=== PATIENT | female | born 1960 | race Caucasian/White ===

== ENCOUNTER 2017-12-22 11:28 | Emergency (ER) | payer BC, OTHER ==
[2017-12-22 12:08] LABS: #Eosinphils 0.1 thou/uL (0.0-0.7); #Lymphocytes 2.1 thou/uL (1.20-3.40); #Monocytes 0.4 thou/uL (0.11-0.59); #Neutrophils 4.6 thou/uL (1.40-6.50); %Basophils 0.4 % (0.0-1.0); %Eosinophils 0.7 % (0.0-10.0); %Lymphocytes 29.1 % (21.0-51.0); %Neutrophils 64.9 % (42.0-75.0); Hemoglobin 13.4 g/dL (12.0-16.0); Mean Corpuscular HGB CONC 32.2 g/dL (32.0-36.0); Mean Corpuscular Volume 86.9 fl (81.0-99.0); Mean Platelet Volume 7.4 fL (7.4-10.4); Platelet Count 268 thou/uL (130-400); RBC Distribution Width 12.8 % (11.5-14.5); Red Blood Cell (RBC) Count 4.79 mill/uL (4.20-5.40); White Blood Cell (WBC) Count 7.1 thou/uL (4.8-10.8)
[2017-12-22 12:31] LABS: ALT (SGPT) 21 U/L (8-55); AST (SGOT) 18 U/L (5-34); Alkaline Phosphatase 103 U/L (40-150); Anion Gap 13 mmol/L (10-20); BUN (Urea Nitrogen) 11 mg/dL (9.8-20.1); Bilirubin, Total 0.5 mg/dL (0.2-1.2); Calc. Creatinine Clearance 0 mL/min (70-130); Calcium 9.5 mg/dL (7.8-10.44); Carbon Dioxide 29 mmol/L (22-29); Chloride 102 mmol/L (98-107); Estimated GFR-MDRD 79; Globulin 3.4 g/dL (2.4-3.5); Glucose 145 mg/dL (70-105); Potassium 3.9 mmol/L (3.5-5.1); Protein, Total 7.4 g/dL (6.0-8.3); Sodium 140 mmol/L (136-145)
--- NOTE | 2017-12-22 16:30 | ULT ---
LIMITED ULTRASOUND OF THE RIGHT BREAST 12/22/17 HISTORY: Redness and pain to inferior aspect right breast as well as right middle pain and discoloration. Righ t breast infection. FINDINGS: There is an irregular hypoechoic mass-like structure seen at the 8 o'clock position right breast. Thi s is taller than wide and measures 1.1 cm x 0.8 cm x 0.8 cm. While this could be attributable to infe ction given patient's clinical history, a mass related to neoplastic process also cannot be excluded based on this examination. No other findings. IMPRESSION: Hypoechoic irregular margin mass at the 8 o'clock position right breast. This could be related to inf ectious process, given patient's current clinical history. However, a mass related to a neoplastic pr ocess cannot be excluded based on this exam. Followup evaluation is recommended if there is concern f or infection and to ensure resolution to exclude neoplastic process. POS: [facility]
== END 2017-12-22 16:14 | disposition home or self-care (01) ==
LOC: ERS 11:28
DX: N61.1 Abscess of the breast and nipple (principal); K21.9 Gastro-esophageal reflux disease without esophagitis; E11.9 Type 2 diabetes mellitus without complications; E03.9 Hypothyroidism, unspecified; F32.9 Major depressive disorder, single episode, unspecified
CPT/HCPCS: 36415; 80053; 83605; 85025; 87040

== ENCOUNTER → 2017-12-24 | Day surgery (SDC) | payer OTHER | LOC: BICULT 14:41 | PROVIDERS: ATTEND Surgery | PROC: 0HBT3ZX Excision of Right Breast, Percutaneous Approach, Diagnostic (ICD-10-PCS; principal; 2017-12-24) | DX: C50.811 Malignant neoplasm of overlapping sites of right female breast (principal); E11.9 Type 2 diabetes mellitus without complications; E03.9 Hypothyroidism, unspecified; K21.9 Gastro-esophageal reflux disease without esophagitis; Z17.1 Estrogen receptor negative status [ER-]; Z79.890 Hormone replacement therapy; Z79.4 Long term (current) use of insulin; Z79.899 Other long term (current) drug therapy; Z90.710 Acquired absence of both cervix and uterus; Z98.51 Tubal ligation status | CPT/HCPCS: 19100; 76942; 77066; 88305; 88341; 88342; 88360; G0279 ==

== ENCOUNTER 2017-12-28 16:40 | Outpatient (CLI) | payer OTHER ==
[2017-12-28 17:01] LABS: #Eosinphils 0.1 thou/uL (0.0-0.7); #Lymphocytes 2.2 thou/uL (1.20-3.40); #Monocytes 0.4 thou/uL (0.11-0.59); #Neutrophils 6.6 thou/uL (1.40-6.50); %Basophils 0.3 % (0.0-1.0); %Eosinophils 0.8 % (0.0-10.0); %Lymphocytes 23.9 % (21.0-51.0); %Monocytes 4.8 % (0.0-10.0); %Neutrophils 70.2 % (42.0-75.0); Hemoglobin 12.9 g/dL (12.0-16.0); Mean Corpuscular HGB CONC 32.1 g/dL (32.0-36.0); Mean Corpuscular Hemoglobin 27.7 pg (27.0-31.0); Mean Corpuscular Volume 86.3 fl (81.0-99.0); Mean Platelet Volume 7.6 fL (7.4-10.4); Platelet Count 278 thou/uL (130-400); RBC Distribution Width 12.7 % (11.5-14.5); Red Blood Cell (RBC) Count 4.66 mill/uL (4.20-5.40); White Blood Cell (WBC) Count 9.3 thou/uL (4.8-10.8)
[2017-12-28 17:21] LABS: ALT (SGPT) 20 U/L (8-55); AST (SGOT) 19 U/L (5-34); Albumin 4.1 g/dL (3.5-5.0); Alkaline Phosphatase 112 U/L (40-150); Anion Gap 11 mmol/L (10-20); BUN (Urea Nitrogen) 14 mg/dL (9.8-20.1); Bilirubin, Total 0.3 mg/dL (0.2-1.2); Calc. Creatinine Clearance 0 mL/min (70-130); Calcium 9.7 mg/dL (7.8-10.44); Carbon Dioxide 27 mmol/L (22-29); Chloride 104 mmol/L (98-107); Estimated GFR-MDRD 42; Globulin 3.5 g/dL (2.4-3.5); Glucose 134 mg/dL (70-105); Potassium 4.1 mmol/L (3.5-5.1); Protein, Total 7.6 g/dL (6.0-8.3); Sodium 138 mmol/L (136-145)
--- NOTE | 2018-03-03 08:35 | EKG ---
Test Reason : Blood Pressure : / mmHG Vent. Rate : 079 BPM Atrial Rate : 079 BPM P-R Int : 146 ms QRS Dur : 104 ms QT Int : 388 ms P-R-T Axes : 031 046 010 degrees QTc Int : 444 ms Normal sinus rhythm Cannot rule out Anterior infarct (cited on or before 23-MAY-2017) Abnormal ECG When compared with ECG of 23-MAY-2017 10:43, Questionable change in QRS axis Confirmed by BERRY PACE, VALARIE ([id number]) on 03/03/2018 8:34:48 AM Referred By: RAFAT Confirmed By:VALARIE SMART MD
== END 2017-12-28 16:41 | disposition home or self-care (01) ==
LOC: LABBT 16:40
PROVIDERS: ATTEND Surgery
DX: Z01.818 Encounter for other preprocedural examination (principal); C50.919 Malignant neoplasm of unspecified site of unspecified female breast
CPT/HCPCS: 80053; 85025; 93005; 93010

== ENCOUNTER 2017-12-31 07:54 | Day surgery (SDC) | payer OTHER ==
[2017-12-28 16:59] VITALS: BMI 38.9
[2017-12-31] MEDS ORDERED: Midazolam HCl 2 mg/2 ml Vial ONE ×2 (10:52→10:59)
[2017-12-31] MEDS ORDERED: Propofol 500 MG/50 ML VIAL ONE (10:59)
[2017-12-31] MEDS ORDERED: Fentanyl 100 MCG/2 ML VIAL ONE (10:59)
[2017-12-31] MEDS ORDERED: CEFAZOLIN/Water 2 GM/20 ML SYRINGE ONE (11:06)
[2017-12-31] MEDS ORDERED: Lidocaine 2% w/Epinephrine 1:200K 20 ML VIAL ONE (11:08)
[2017-12-31] MEDS ORDERED: Bupivacaine 0.25% HCL 30 ML VIAL ONE (11:08)
--- NOTE | 2017-12-31 14:08 | RAD ---
PORTABLE CHEST 1 VIEW: Date: 12/31/17 HISTORY: MediPort placement. FINDINGS/IMPRESSION: There is a left subclavian Port-A-Cath with tip in the projection of the SVC. No pneumothoraces are s een. POS: [facility]
--- NOTE | 2017-12-31 17:49 | OP ---
PREOPERATIVE DIAGNOSIS: Breast cancer, inflammatory. SURGEON: Juan Ruggiero M.D. PROCEDURE PERFORMED: MediPort placement. INDICATIONS: This is a 57-year-old female recently diagnosed with right-sided inflammatory breast ca ncer needs adjuvant therapy. FINDINGS: Placed in the left subclavian vein. PROCEDURE IN DETAIL: After informed consent was obtained, the patient was taken to the operating ankit m, given total intravenous anesthesia, placed in the supine position. Her chest and neck were preppe d and draped in the usual fashion. Local anesthesia infiltrated subcutaneously and deep. She was pl aced in Trendelenburg position. An introducer needle was inserted in left subclavian with good backf low of venous blood. J-wire threaded easily. Fluoroscopy showed good placement of the wire in the s uperior vena cava. The skin was incised and a pocket was created sharply with electrocautery. A stephanie zina was created utilizing the tunneling device and the catheter brought through the tunnel, it was co nnected to the MediPort. The MediPort secured to the pectoralis fascia with interrupted 2-0 Prolene suture. The catheter cut to size and the peel-away introducer inserted over the wire. The wire was removed. Fluoroscopy showed that the catheter was twisted and when I aspirated the device, they coul d not get any backflow of venous blood and so I tried repositioning, could not get it work, so we ope juan manuel another cath and brought the catheter out, again the subclavian vein was accessed, the wire threa ded. Fluoroscopy showed good placement in superior vena cava. Peel-away introducer inserted over th e wire. The catheter through the peel-away introducer and the peel-away introducer removed. Fluoros copy this time showed good placement. The MediPort was accessed. Good backflow of venous blood, flu shed with heparinized saline. The subcutaneous reapproximated with interrupted 3-0 Vicryl. Skin gary sed with interrupted 4-0 Rapide. Dermabond applied. The patient tolerated the procedure well and tr ansferred to recovery in good condition. Sponge and needle count verified correct x2.
== END 2017-12-31 13:56 | disposition home or self-care (01) ==
LOC: SDC 07:54
PROVIDERS: ATTEND Surgery
PROC: 0JH60WZ Insertion of Totally Implantable Vascular Access Device into Chest Subcutaneous Tissue and Fascia, Open Approach (ICD-10-PCS; principal; 2017-12-31)
DX: C50.911 Malignant neoplasm of unspecified site of right female breast (principal); E03.9 Hypothyroidism, unspecified; F32.9 Major depressive disorder, single episode, unspecified; M54.5 Low back pain; G89.29 Other chronic pain; L71.9 Rosacea, unspecified; E66.9 Obesity, unspecified; K58.1 Irritable bowel syndrome with constipation; E55.9 Vitamin D deficiency, unspecified; J30.9 Allergic rhinitis, unspecified; E11.9 Type 2 diabetes mellitus without complications; K21.9 Gastro-esophageal reflux disease without esophagitis; M19.90 Unspecified osteoarthritis, unspecified site; Z68.39 Body mass index [BMI] 39.0-39.9, adult; Z79.890 Hormone replacement therapy; Z79.4 Long term (current) use of insulin; Z79.899 Other long term (current) drug therapy; Z90.710 Acquired absence of both cervix and uterus; Z90.79 Acquired absence of other genital organ(s); Z90.722 Acquired absence of ovaries, bilateral; Z98.890 Other specified postprocedural states; Z91.5 Personal history of self-harm
CPT/HCPCS: 71045; 80053; 85025; 93005; 93010; C1788; J1642; J2250; J2704; J3010; S0020

== ENCOUNTER 2018-01-01 11:18 | Outpatient (CLI) | payer OTHER ==
--- NOTE | 2018-01-01 13:42 | PET ---
NUCLEAR MEDICINE FDG PET CT: (Positron Emission Tomography) HISTORY: 57-year-old female with cancer of right breast, initial staging, C50.811. COMPARISON: None. TECHNIQUE: IV injection F-18 Fluorodeoxyglucose (FDG) dose: 12.2 mCi PET and attenuation-correction CT performed from skull base to proximal thighs. FINDINGS: SUV (standard uptake value) numbers given are maximum SUV's: There is an approximately 1 cm right axillary enlarged lymph node with SUV of 3.8. In the right lower outer quadrant of the breast, there is a small, approximately 1 cm, ill-defined lesion that probably represents the primary malignancy that was biopsied, or postsurgical change, with SUV of 2.0. There is thickening of the anterior skin of the right breast with SUV of up to 2.1, consistent with inflamm atory breast cancer. There are no foci of increased uptake in the rest of the chest, neck, abdomen, o r pelvis. There are no convincing foci of significantly increased uptake in the osseous structures. IMPRESSION: 1. ICD 10: C50.511: Malignant neoplasm of the lower-outer quadrant of right female breast, with evid ence for malignant right axillary lymphadenopathy, complicated by inflammatory right breast cancer. 2. No evidence of distant metastasis. ALEX Perez POS: [facility]
== END 2018-01-01 11:19 | disposition home or self-care (01) ==
LOC: PET 11:18
PROVIDERS: ATTEND Internal Medicine Hematology & Oncology
DX: C50.811 Malignant neoplasm of overlapping sites of right female breast (principal); C50.511 Malignant neoplasm of lower-outer quadrant of right female breast
CPT/HCPCS: 78815; A9552

== ENCOUNTER 2018-01-03 13:05 | Outpatient (CLI) | payer OTHER | END 2018-01-03 13:06 | disposition home or self-care (01) | LOC: ULT 13:05 | PROVIDERS: ATTEND Internal Medicine Hematology & Oncology | DX: Z51.11 Encounter for antineoplastic chemotherapy (principal); C50.811 Malignant neoplasm of overlapping sites of right female breast; Z79.899 Other long term (current) drug therapy; I08.1 Rheumatic disorders of both mitral and tricuspid valves; I50.32 Chronic diastolic (congestive) heart failure | CPT/HCPCS: 93306 ==

== ENCOUNTER 2018-01-15 11:20 | Outpatient (CLI) | payer OTHER ==
--- NOTE | 2018-01-15 12:45 | RAD ---
VASCULAR PORT ACCESS: INDICATIONS: The patient has a Mediport type catheter in place. The catheter will flush but will not aspirate blo od. A request is made to assess function. FINDINGS: Iodinated contrast is injected into the port, under fluoroscopic observation. Contrast easily flushe s from the tip of the catheter into the SVC. There is no dysfunction identified. IMPRESSION: Normally functioning Mediport catheter. POS: [facility]
== END 2018-01-15 11:21 | disposition home or self-care (01) ==
LOC: RAD 11:20
PROVIDERS: ATTEND Surgery
DX: Z45.2 Encounter for adjustment and management of vascular access device (principal)
CPT/HCPCS: 36598; J1642

== ENCOUNTER 2018-03-25 15:53 | Outpatient (CLI) | payer OTHER ==
[2018-03-25 16:36] LABS: ALT (SGPT) 17 U/L (8-55); AST (SGOT) 18 U/L (5-34); Albumin 4.3 g/dL (3.5-5.0); Alkaline Phosphatase 141 U/L (40-150); Anion Gap 13 mmol/L (10-20); BUN (Urea Nitrogen) 7 mg/dL (9.8-20.1); Bilirubin, Total 0.2 mg/dL (0.2-1.2); Calc. Creatinine Clearance 0 mL/min (70-130); Calcium 9.2 mg/dL (7.8-10.44); Carbon Dioxide 27 mmol/L (22-29); Chloride 104 mmol/L (98-107); Estimated GFR-MDRD 72; Globulin 2.5 g/dL (2.4-3.5); Glucose 172 mg/dL (70-105); Potassium 3.8 mmol/L (3.5-5.1); Protein, Total 6.8 g/dL (6.0-8.3); Sodium 140 mmol/L (136-145)
[2018-03-25 16:39] LABS: Anisocytosis SLIGHT = 6-15 cells (100X) (0-5/hpf); Band 24 % (5-11); Lymphocytes 15 % (21-51); MDiff Complete? YES; Mean Corpuscular HGB CONC 33.2 g/dL (32.0-36.0); Mean Corpuscular Hemoglobin 29.4 pg (27.0-31.0); Mean Corpuscular Volume 88.5 fl (81.0-99.0); Mean Platelet Volume 6.7 fL (7.4-10.4); Metamyelocyte 1 % (0-0); Monocytes 6 % (0-10); Neutrophil 53 % (42-75); PLT Morphology Comment Appears Adequate; Platelet Count 240 thou/uL (130-400); Polychromasia SLIGHT = 2-3 cells (100X) (0-2/hpf); RBC Distribution Width 16.1 % (11.5-14.5); Reactive Lymphocytes 1 % (0-10); Red Blood Cell (RBC) Count 4.08 mill/uL (4.20-5.40); White Blood Cell (WBC) Count 15.1 thou/uL (4.8-10.8)
--- NOTE | 2018-03-27 20:16 | EKG ---
Test Reason : Blood Pressure : / mmHG Vent. Rate : 083 BPM Atrial Rate : 083 BPM P-R Int : 144 ms QRS Dur : 106 ms QT Int : 388 ms P-R-T Axes : 040 029 046 degrees QTc Int : 455 ms Normal sinus rhythm Cannot rule out Anterior infarct (cited on or before 23-MAY-2017) Abnormal ECG When compared with ECG of 28-DEC-2017 16:44, No significant change was found Confirmed by POLLO CABRERA ([id number]) on 03/27/2018 8:16:19 PM Referred By: RAFAT Confirmed By:POLLO CABRERA
== END 2018-03-25 15:54 | disposition home or self-care (01) ==
LOC: LABBT 15:53
PROVIDERS: ATTEND Surgery
DX: Z01.818 Encounter for other preprocedural examination (principal); T82.7XXA Infection and inflammatory reaction due to other cardiac and vascular devices, implants and grafts, initial encounter; C50.919 Malignant neoplasm of unspecified site of unspecified female breast
CPT/HCPCS: 80053; 85025; 93005; 93010

== ENCOUNTER 2018-03-26 13:03 | Day surgery (SDC) | payer OTHER ==
[2018-03-25 16:11] VITALS: BMI 37.3
[2018-03-26] MEDS ORDERED: Bupivacaine HCl 0.5%/Epinephrine 1:200,000/PF 30 ml Vial ONE (13:43)
[2018-03-26] MEDS ORDERED: Lidocaine 2% 10 ML INJ ONE (13:43)
[2018-03-26] MEDS ORDERED: CEFAZOLIN/Water 2 GM/20 ML SYRINGE ONE (13:50)
[2018-03-26] MEDS ORDERED: Midazolam HCl 2 mg/2 ml Vial ONE (14:01)
[2018-03-26] MEDS ORDERED: Fentanyl 100 MCG/2 ML VIAL ONE (14:01)
[2018-03-26] MEDS ORDERED: Ketamine 50 MG/ML VIAL ONE (14:01)
[2018-03-26] MEDS ORDERED: Propofol 500 MG/50 ML VIAL ONE (14:01)
[2018-03-26] MEDS ORDERED: PROPOFOL 200 MG/20 ML VIAL ONE (14:03)
[2018-03-26] MEDS ORDERED: Bupivacaine/Epinephrine 0.25% 30 ML VIAL ONE (14:43)
[2018-03-26] MEDS ORDERED: HYDROcodone/Acetaminophen 5/325 mg Tablet ONE (15:23)
--- NOTE | 2018-03-26 15:48 | RAD ---
AP CHEST: Indication: History of catheter placement. FINDINGS: There has been interval placement of a right subclavian central venous catheter. Slight prominence of the right hilar region, possibly related to prior therapy, similar to the comparison chest radiograp h. Left chest wall port has been removed. No pleural effusion or pneumothorax. No acute osseous abnor mality. IMPRESSION: 1. Interval placement of a new central venous catheter within the right subclavian region. 2. Removal of left chest wall port. 3. Stable prominence of the right hilar region which may reflect sequella of prior therapy. POS: [facility]
--- NOTE | 2018-03-26 18:39 | OP ---
PREOPERATIVE DIAGNOSES: Infected MediPort and breast cancer, needing further chemotherapy. SURGEON: Juan Ruggiero M.D. PROCEDURE PERFORMED: Placement of right subclavian Yang, removal of left subclavian MediPort. INDICATIONS: The patient is a 57-year-old female who had a MediPort placed in December. She has not been undergoing chemotherapy. Over the last week, it became infected, swollen, fluctuant, tender an d erythematous, but she needs at least 2 more doses of chemo and they cannot use her peripheral veins . FINDINGS: Good placement of right subclavian vein by fluoroscopy. Purulent fluid around the left Me diPort. PROCEDURE: After informed consent was obtained, the patient was taken to the operating room and give n total intravenous anesthesia, placed in the Trendelenburg position. Her chest and neck were preppe d and draped in usual fashion. Local anesthesia infiltrated subcutaneously and deep and introducer n eedle was inserted right subclavian with good backflow of venous blood. J-wire threaded easily. Flu oroscopy was used showed good placement of the wire in the superior vena cava. The subcu was further anesthetized and incision made on the chest wall and a tunneling device used to tunnel the catheter under the skin to where the wire was coming out. The cuff was then advanced to just the subclavian a stanley. The tubing was then cut. The system was flushed with heparinized saline. The peel-away introd ucer inserted over the wire and the wire removed. The catheter inserted through the peel-away introd ucer and then the peel-away introducer removed. Fluoroscopy again used showed good placement in supe rior vena cava. The system was accessed and Good backflow of venous blood, flushed with heparinized saline, sutured in place with a 3-0 nylon suture. A sterile bandage applied after the skin incision closed with a 4-0 Rapide and Dermabond. I then moved to the left side. Again, local anesthesia infi ltrated subcutaneously and deep. A transverse incision performed through the old scar. Subcutaneous divided sharply down to the capsule, releasing purulent fluid. This was sent for culture. The Medi Port was removed as well as the tubing. There was some extension of the infection up along the tubin g. This was opened up with cautery and then the entire area was thoroughly irrigated with saline the n packed with Betadine gauze. Hemostasis achieved with electrocautery. A sterile bandage was applie d. Patient tolerated the procedure well and was transferred to recovery in good condition where a est x-ray was ordered.
== END 2018-03-26 17:15 | disposition home or self-care (01) ==
LOC: SDC 13:03
PROVIDERS: ATTEND Surgery
PROC: 02HV33Z Insertion of Infusion Device into Superior Vena Cava, Percutaneous Approach (ICD-10-PCS; principal; 2018-03-26)
PROC: B5181ZA Fluoroscopy of Superior Vena Cava using Low Osmolar Contrast, Guidance (ICD-10-PCS; principal; 2018-03-26)
PROC: 0JPT3WZ Removal of Totally Implantable Vascular Access Device from Trunk Subcutaneous Tissue and Fascia, Percutaneous Approach (ICD-10-PCS; principal; 2018-03-26)
DX: T80.212A Local infection due to central venous catheter, initial encounter (principal); C50.911 Malignant neoplasm of unspecified site of right female breast; E03.9 Hypothyroidism, unspecified; F32.9 Major depressive disorder, single episode, unspecified; K59.09 Other constipation; E55.9 Vitamin D deficiency, unspecified; E11.9 Type 2 diabetes mellitus without complications; K21.9 Gastro-esophageal reflux disease without esophagitis; M19.90 Unspecified osteoarthritis, unspecified site; E66.8 Other obesity; Z68.37 Body mass index [BMI] 37.0-37.9, adult; Z79.4 Long term (current) use of insulin; Z79.899 Other long term (current) drug therapy; Z17.1 Estrogen receptor negative status [ER-]
CPT/HCPCS: 71045; 87070; 87205; C1751; J0670; J1642; J2250; J2704; J3010

== ENCOUNTER 2018-04-01 09:07 | Outpatient (CLI) | payer OTHER ==
--- NOTE | 2018-04-01 12:22 | HP ---
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 At this time, the patient also underwent right subclavian Yang placement. Previous ly, the patient underwent MediPort placement on 12/31/2017. The MediPort was removed. For erythema, fluctuance, edema and tenderness associated with the MediPort. The patient has been performing wet- to-dry dressing changes for the wound of her left anterior superior chest. The patient states she saavedra s an appointment with Dr. Ruggiero later today. PAST MEDICAL HISTORY: 1. Breast carcinoma. 2. Diabetes mellitus. 3. Hypothyroidism. 4. Gastroesophageal reflux disease. PAST SURGICAL HISTORY: 1. MediPort placement 12/2017. 2. Removal of MediPort and Yang catheter placement, 03/26/2018. 3. Hysterectomy in 2008. MEDICATIONS: 1. Synthroid. 2. Nexium. 3. Lantus. 4. Doxycycline. 5. Bactrim. 6. Premarin cream. 7. Lodine. 8. Metformin. 9. Ondansetron. 10. Antiemetic. ALLERGIES: No known diagnosed allergies. SOCIAL HISTORY: Negative for tobacco or ETOH use. FAMILY HISTORY: Significant for diabetes mellitus. The patient states that her father, mother, and sister were all diagnosed with diabetes mellitus. REVIEW OF SYSTEMS: The patient states that once she completes the prescribed course of chemotherapy. She is to undergo surgery and radiation therapy for breast carcinoma. PHYSICAL EXAMINATION: VITAL SIGNS: Temperature 97.9, pulse 89, respirations 19, blood pressure 143/76, Accu-Chek 134. GENERAL: A 57-year-old female sitting on table in examination room in no acute distress. HEENT: Normocephalic, atraumatic. NECK: No nuchal rigidity. CHEST: Clear to auscultation. A wound of the left superior anterior chest is present which measures approximately 2.5 x 1.5 cm. The wound is granulating. No purulent drainage is associated with the wound. No erythema of the skin surrounding the wound is present. No maceration of the skin of the p eriwound is noted. CARDIOVASCULAR: Regular rate and rhythm. ABDOMEN: Soft. EXTREMITIES: No clubbing or cyanosis. NEUROLOGIC: Grossly nonfocal. ASSESSMENT AND PLAN: 1. Left anterior superior chest wound subsequent to MediPort removal. The patient has been performi ng wet-to-dry dressing changes as per Dr. Ruggiero. Wet-to-dry dressing changes will be continued on a daily basis after cleansing and irrigation. The patient is to continue Bactrim and doxycycline as pr eviously prescribed. The patient has a followup appointment with Dr. Ruggiero later today. I will see Ms. Reardon again as needed after her evaluation by General Surgery. The patient understands and is i n agreement with the preceding treatment plan. 2. Breast carcinoma. 3. Diabetes mellitus. The patient's Accu-Chek in clinic today is 134. The patient has been told th at for optimal wound healing, her blood glucoses should remain below 150. 4. Hypothyroidism. 5. Gastroesophageal reflux disease.
== END 2018-04-01 09:08 | disposition home or self-care (01) ==
LOC: WCC 09:07
PROVIDERS: ATTEND Family Medicine
DX: T81.89XD Other complications of procedures, not elsewhere classified, subsequent encounter (principal); C50.919 Malignant neoplasm of unspecified site of unspecified female breast; E11.9 Type 2 diabetes mellitus without complications; E03.9 Hypothyroidism, unspecified; K21.9 Gastro-esophageal reflux disease without esophagitis
CPT/HCPCS: 97602; 99203; G0463

== ENCOUNTER 2018-04-17 17:14 | Outpatient (CLI) | payer OTHER ==
[2018-04-17 17:55] LABS: #Lymphocytes 1.9 thou/uL (1.20-3.40); #Monocytes 0.4 thou/uL (0.11-0.59); #Neutrophils 4.4 thou/uL (1.40-6.50); %Basophils 0.2 % (0.0-1.0); %Eosinophils 0.2 % (0.0-10.0); %Lymphocytes 28.2 % (21.0-51.0); %Monocytes 5.3 % (0.0-10.0); %Neutrophils 66.2 % (42.0-75.0); Mean Corpuscular HGB CONC 33.7 g/dL (32.0-36.0); Mean Corpuscular Hemoglobin 30.7 pg (27.0-31.0); Mean Corpuscular Volume 90.9 fl (81.0-99.0); Mean Platelet Volume 7.5 fL (7.4-10.4); PLT Morphology Comment Appears Decreased; Platelet Count 117 thou/uL (130-400); RBC Distribution Width 16.4 % (11.5-14.5); Red Blood Cell (RBC) Count 3.59 mill/uL (4.20-5.40); White Blood Cell (WBC) Count 6.7 thou/uL (4.8-10.8)
[2018-04-17 17:59] LABS: ALT (SGPT) 13 U/L (8-55); AST (SGOT) 15 U/L (5-34); Albumin 4.2 g/dL (3.5-5.0); Alkaline Phosphatase 109 U/L (40-150); Anion Gap 9 mmol/L (10-20); BUN (Urea Nitrogen) 10 mg/dL (9.8-20.1); Bilirubin, Total 0.3 mg/dL (0.2-1.2); Calc. Creatinine Clearance 0 mL/min (70-130); Carbon Dioxide 29 mmol/L (22-29); Chloride 105 mmol/L (98-107); Estimated GFR-MDRD 84; Globulin 2.3 g/dL (2.4-3.5); Glucose 120 mg/dL (70-105); Potassium 3.7 mmol/L (3.5-5.1); Protein, Total 6.5 g/dL (6.0-8.3); Sodium 139 mmol/L (136-145)
--- NOTE | 2018-06-12 17:50 | EKG ---
Test Reason : Blood Pressure : / mmHG Vent. Rate : 081 BPM Atrial Rate : 081 BPM P-R Int : 140 ms QRS Dur : 108 ms QT Int : 378 ms P-R-T Axes : 031 008 022 degrees QTc Int : 439 ms Normal sinus rhythm Cannot rule out Anterior infarct (cited on or before 23-MAY-2017) Abnormal ECG When compared with ECG of 25-MAR-2018 16:04, No significant change was found Confirmed by DIMPLE HUNTER M.D. ([id number]) on 06/12/2018 5:50:08 PM Referred By: RAFAT Confirmed By:DIMPLE HUNTER M.D.
== END 2018-04-17 17:15 | disposition home or self-care (01) ==
LOC: LABBT 17:14
PROVIDERS: ATTEND Surgery
DX: Z01.818 Encounter for other preprocedural examination (principal); C50.911 Malignant neoplasm of unspecified site of right female breast
CPT/HCPCS: 80053; 85025; 93005; 93010

== ENCOUNTER 2018-04-17 17:15 | Inpatient (IN) | payer OTHER ==
[2018-05-13] MEDS ORDERED: CEFAZOLIN/Water 2 GM/20 ML SYRINGE ONE (09:41)
[2018-05-13] MEDS ORDERED: Scopolamine 1.5 mg/72 hour Patch ONE (10:12)
--- NOTE | 2018-05-13 10:38 | NM ---
RIGHT BREAST LYMPHOSCINTIGRAPHY: HISTORY: Malignant neoplasm of right unspecified female breast, right breast cancer. RADIOPHARMACEUTICAL: 400 mCi Technetium filtered sulfur colloid injected in the right periareolar breast in divided doses. FINDINGS: There are foci of increased uptake in the right axilla and within the lymph nodes. No visualization of the lymph nodes in the internal mammary chains on either side or the left axillary lymph nodes are seen. IMPRESSION: [place] lymph node (S) in the right axilla. POS: [facility]
[2018-05-13] MEDS ORDERED: Bupivacaine HCl 0.5%/Epinephrine 1:200,000/PF 30 ml Vial ONE (11:26)
[2018-05-13] MEDS ORDERED: Albuterol Sulfate HFA (OR ONLY) ONE (11:28)
[2018-05-13] MEDS ORDERED: Fentanyl 100 MCG/2 ML VIAL ONE ×3 (11:43→13:51)
[2018-05-13] MEDS ORDERED: Ondansetron HCl/PF 4 MG/2 ML Vial ONE ×2 (12:51→14:27)
[2018-05-13] MEDS ORDERED: hydrALAZINE 20 MG/ML VIAL SLOW IVP PRN (13:22)
[2018-05-13] MEDS ORDERED: Insulin Regular 300 UNITS/3 ML VIAL SC PRN (13:22)
[2018-05-13] MEDS ORDERED: Ondansetron HCl/PF 4 MG/2 ML Vial IVP PRN ×2 (13:22→13:38)
[2018-05-13] MEDS ORDERED: Promethazine HCl 25 MG/ML VIAL IM PRN ×2 (13:22→13:38)
[2018-05-13] MEDS ORDERED: Dextrose 5% in Water 1,000 ML IV PRN (13:22)
[2018-05-13] MEDS ORDERED: HYDROcodone/Acetaminophen 10/325 mg Tablet PO PRN ×2 (13:22)
[2018-05-13] MEDS ORDERED: Dextrose 50% Abboject 50 ML SYRINGE SLOW IVP PRN (13:22)
[2018-05-13] MEDS ORDERED: HYDROmorphone 2 MG/ML VIAL SLOW IVP PRN (13:38)
[2018-05-13] MEDS ORDERED: Promethazine HCl 25 MG/ML VIAL SLOW IVP PRN (13:38)
--- NOTE | 2018-05-13 13:59 | OP ---
DATE OF PROCEDURE: 05/13/2018 PREOPERATIVE DIAGNOSIS: Right breast cancer. SURGEON: Dr. Juan Ruggiero PROCEDURE: Right total mastectomy with sentinel lymph node biopsy. INDICATIONS: A 57-year-old female who had a very advanced T4 N1 breast cancer, underwent neoadjuvant chemotherapy with good response. FINDINGS: Three sentinel nodes were found all negative by touch prep. PROCEDURE IN DETAIL: After informed consent was obtained, the patient was taken to the operating ankit m and given general endotracheal anesthesia. She was placed in the supine position. Her chest was p repped and draped in usual fashion. She had undergone injection of radionucleotide in the Nuclear [facility] dicine Department. Her breast was prepped and draped in usual fashion. Neoprobe was used. A baselin e was performed with counts around 12. Initial transcutaneous counts were found at approximately 40 in the line of the future mastectomy incision. A skin incision was performed. The subcu divided sha rply. An vivo node with counts of 60 were found. This was dissected out, efferent and afferent lymp hatics ligated with 3-0 Vicryl ties. There was actually 2 at this point, these were removed. Anothe r hot spot of 35 was found. This was dissected out. Efferent and afferent lymphatics were ligated w ith 3-0 Vicryl ties and sent as sentinel node #3. Residual counts were all less than 15. While wait ing on the results of that, an elliptical incision was performed utilizing the plasma blade. The sub cu divided with the plasma blade, the plane was developed between breast tissue and subcutaneous tiss ue utilizing the plasma blade to the level of the clavicle superior, the sternum medially, the rectus inferiorly and the latissimus laterally. It was then removed from the pectoralis fascia with the pl asma blade was marked with a suture superior and sent to pathology for further analysis. Hemostasis was achieved with the plasma blade. The nodes came back negative by touch prep x3. Two drains were placed and brought out through separate stab wounds, one to the axilla and one under the flap. Subcu taneous tissue was reapproximated with interrupted 3-0 Vicryl. Skin closed with a running subcuticul ar 4-0 Rapide. Steri-Strips applied. Sterile bandage applied. The patient tolerated the procedure well and was transferred to recovery in good condition. Sponge and needle count verified correct x2.
[2018-05-13] MEDS ORDERED: Ketorolac Tromethamine 30 MG/ML VIAL ONE (14:27)
[2018-05-13] MEDS ORDERED: Glycopyrrolate 0.2 MG/ML 5 ML SYRINGE ONE (14:27)
[2018-05-13] MEDS ORDERED: Lidocaine 1% PF 5 ML VIAL ONE (14:27)
[2018-05-13] MEDS ORDERED: PROPOFOL 200 MG/20 ML VIAL ONE (14:27)
[2018-05-13] MEDS ORDERED: Dexamethasone 20 MG/5 ML VIAL ONE (14:27)
[2018-05-13] MEDS: Lactated Ringer's 1,000 ML IV SCH ×2 (15:49→18:31)
[2018-05-13] MEDS ORDERED: Acetaminophen/Codeine 30-300mg Tablet PO PRN ×2 (18:45)
[2018-05-13 19:41] VITALS: BMI 36.8
[2018-05-13] MEDS: Docusate 100 MG CAP PO SCH (21:07)
[2018-05-13] MEDS: Famotidine 20 MG TAB PO SCH (21:07)
[2018-05-14 05:58] LABS: #Lymphocytes 1.8 thou/uL (1.20-3.40); #Monocytes 0.8 thou/uL (0.11-0.59); #Neutrophils 4.8 thou/uL (1.40-6.50); %Basophils 0.3 % (0.0-1.0); %Eosinophils 0.1 % (0.0-10.0); %Lymphocytes 24.3 % (21.0-51.0); %Monocytes 11.2 % (0.0-10.0); %Neutrophils 64.1 % (42.0-75.0); Hemoglobin 9.3 g/dL (12.0-16.0); Mean Corpuscular HGB CONC 33.1 g/dL (32.0-36.0); Mean Corpuscular Hemoglobin 31.8 pg (27.0-31.0); Mean Corpuscular Volume 95.9 fL (78.0-98.0); Mean Platelet Volume 6.7 fL (7.4-10.4); Platelet Count 197 thou/uL (130-400); RBC Distribution Width 15.8 % (11.5-14.5); Red Blood Cell (RBC) Count 2.93 mill/uL (4.20-5.40); White Blood Cell (WBC) Count 7.5 thou/uL (4.8-10.8)
[2018-05-14] MEDS: Acetaminophen 325 MG TAB PO PRN ×2 (06:06→12:17)
[2018-05-14 06:09] LABS: Anion Gap 10 mmol/L (10-20); BUN (Urea Nitrogen) 12 mg/dL (9.8-20.1); Calc. Creatinine Clearance 129 mL/min (70-130); Calcium 8.8 mg/dL (7.8-10.44); Carbon Dioxide 28 mmol/L (22-29); Chloride 106 mmol/L (98-107); Estimated GFR-MDRD 80; Glucose 120 mg/dL (70-105); Potassium 4.2 mmol/L (3.5-5.1); Sodium 140 mmol/L (136-145)
[2018-05-14] MEDS ORDERED: Enoxaparin Sodium 40 MG/0.4 ML SYRINGE SC SCH (09:00)
[2018-05-14] MEDS: Famotidine 20 MG TAB PO SCH (09:52)
[2018-05-14] MEDS: Docusate 100 MG CAP PO SCH (09:53)
[2018-05-14 12:18] VITALS: BP 129/80; TEMP 97.8
--- NOTE | 2018-05-14 13:03 | DIS ---
DISCHARGE DIAGNOSIS: Right breast cancer. PROCEDURES DURING ADMISSION: Right total mastectomy with sentinel node biopsy. HOSPITAL COURSE: The patient was admitted. She underwent surgery. Postoperatively, she has done we ll. Pain is minimal. She is tolerating her pain with Tylenol. Drain output is not excessive. She is being discharged home in good condition on tramadol. She will follow up with me in 5 days.
== END 2018-05-14 15:30 | disposition home or self-care (01) | DRG 581 ==
LOC: SURG A 05-13 06:51
PROVIDERS: ADMIT Surgery; ATTEND Surgery
PROC: 0HTT0ZZ Resection of Right Breast, Open Approach (ICD-10-PCS; principal; 2018-05-13)
PROC: 07B50ZX Excision of Right Axillary Lymphatic, Open Approach, Diagnostic (ICD-10-PCS; 2018-05-13)
DX: C50.919 Malignant neoplasm of unspecified site of unspecified female breast (principal); E03.9 Hypothyroidism, unspecified; F32.9 Major depressive disorder, single episode, unspecified; E66.9 Obesity, unspecified; E11.9 Type 2 diabetes mellitus without complications; Z90.710 Acquired absence of both cervix and uterus; Z68.37 Body mass index [BMI] 37.0-37.9, adult
CPT/HCPCS: 36415; 36416; 78195; 80048; 85025; 88307; 88309; 88333; 88334; 88342; A9541; J0670; J1100; J1815; J1885; J2001; J2405; J2704; J3010; Q9968

== ENCOUNTER 2018-09-26 06:55 | Outpatient (CLI) | payer OTHER ==
--- NOTE | 2018-09-26 07:59 | ULT ---
SONOGRAM RIGHT UPPER QUADRANT: Date: 09/26/18 HISTORY: Abdominal pain and nausea. FINDINGS: Gallbladder has a normal appearance without evidence of stones. Common duct is 0.3 cm. Liver is unrem arkable without focal mass or intrahepatic biliary dilatation. No free fluid. IMPRESSION: No evidence of gallstones or biliary obstruction. No significant abnormalities are demonstrated. POS: [facility]
== END 2018-09-26 06:56 | disposition home or self-care (01) ==
LOC: BICULT 06:55
PROVIDERS: ATTEND Internal Medicine Gastroenterology
DX: R11.0 Nausea (principal); K76.0 Fatty (change of) liver, not elsewhere classified; R19.7 Diarrhea, unspecified; R15.9 Full incontinence of feces; K64.8 Other hemorrhoids
CPT/HCPCS: 76705

== ENCOUNTER 2018-10-16 12:42 | Outpatient (CLI) | payer OTHER ==
--- NOTE | 2018-10-16 16:29 | NM ---
NUCLEAR MEDICINE MUGA SCAN: 10/16/18 INDICATION: Malignant neoplasm of overlapping sites of right female breast. Evaluation of cardiac function for pu rposes of chemotherapy administration. RADIOPHARMACEUTICAL: 27 millicuries technetium 99m tagged RBC. FINDINGS: Utilized gated nuclear medicine imaging subsequent to injection of radio labeled red blood cells, maritza culated LVEF is 62.1%. IMPRESSION: LVEF calculated at 62.1%. POS: [facility]
== END 2018-10-16 12:43 | disposition home or self-care (01) ==
LOC: NM 12:42
PROVIDERS: ATTEND Internal Medicine Hematology & Oncology
DX: C50.811 Malignant neoplasm of overlapping sites of right female breast (principal)
CPT/HCPCS: 78472; A9604

== ENCOUNTER 2018-10-31 07:45 | Outpatient (CLI) | payer OTHER ==
--- NOTE | 2018-10-31 10:08 | ULT ---
STANDARD BILATERAL RENAL ULTRASOUND: HISTORY: Recurrent urinary tract infections. COMPARISON: None. FINDINGS: The right kidney measures 10.3 x 5.1 x 4.1 cm, and the left kidney measures 10.9 x 5.6 x 5.6 cm. Pre -void urinary bladder volume is 324 mL, and post-void residual is 38 mL. Both ureteral jets are seen. No mass or abnormal calcifications. IMPRESSION: Unremarkable examination. POS: [facility]
== END 2018-10-31 07:46 | disposition home or self-care (01) ==
LOC: BICULT 07:45
PROVIDERS: ATTEND Urology
DX: N39.0 Urinary tract infection, site not specified (principal)
CPT/HCPCS: 76770

== ENCOUNTER 2019-06-02 17:39 | Emergency (ER) | payer OTHER ==
[~2019-06-02 17:39] MED LIST: ISOVUE-370 76%-LOCM 1 ML ONE
[2019-06-02 18:12] LABS: #Eosinphils 0.1 thou/uL (0.0-0.7); #Lymphocytes 1.5 thou/uL (1.20-3.40); #Monocytes 0.3 thou/uL (0.11-0.59); #Neutrophils 3.6 thou/uL (1.40-6.50); %Basophils 0.3 % (0.0-1.0); %Lymphocytes 27.8 % (21.0-51.0); %Monocytes 5.7 % (0.0-10.0); %Neutrophils 65.1 % (42.0-75.0); Hemoglobin 13.6 g/dL (12.0-16.0); Mean Corpuscular HGB CONC 33.2 g/dL (32.0-36.0); Mean Corpuscular Hemoglobin 28.9 pg (27.0-31.0); Mean Corpuscular Volume 87.1 fL (78.0-98.0); Mean Platelet Volume 7.7 fL (7.4-10.4); Platelet Count 188 thou/uL (130-400); RBC Distribution Width 13.4 % (11.5-14.5); Red Blood Cell (RBC) Count 4.71 mill/uL (4.20-5.40); White Blood Cell (WBC) Count 5.5 thou/uL (4.8-10.8)
[2019-06-02 18:33] LABS: ALT (SGPT) 15 U/L (8-55); AST (SGOT) 19 U/L (5-34); Albumin 4.3 g/dL (3.5-5.0); Alkaline Phosphatase 121 U/L (40-150); Anion Gap 15 mmol/L (10-20); BUN (Urea Nitrogen) 12 mg/dL (9.8-20.1); Bilirubin, Total 0.5 mg/dL (0.2-1.2); CK (CPK) 42 U/L (29-168); Calc. Creatinine Clearance 0 mL/min (70-130); Carbon Dioxide 24 mmol/L (22-29); Chloride 104 mmol/L (98-107); Estimated GFR-MDRD 86; Glucose 83 mg/dL (70-105); Potassium 3.6 mmol/L (3.5-5.1); Protein, Total 7.3 g/dL (6.0-8.3); Sodium 139 mmol/L (136-145)
--- NOTE | 2019-06-02 18:47 | RAD ---
PORTABLE CHEST: HISTORY: Chest pain. FINDINGS: The lungs are clear. No infiltrate or vascular congestion. Heart size is normal. IMPRESSION: No acute findings. POS: [facility]
--- NOTE | 2019-06-02 19:24 | CT ---
CT PULMONARY ANGIOGRAM CHEST: HISTORY: Chest pain. Shortness of breath. Neck pain. Dizziness. Prior right mastectomy and hysterectomy. FINDINGS: Patchy linear and interstitial parenchymal changes in the right upper lobe, with some associated volu me loss, which may well be related to chronic scarring. A small patch of parenchymal density in the left upper lobe, nonspecific, possibly a small focus of pneumonitis. No CT evidence for acute pulmon ya embolism. No pleural effusion or pericardial effusion. The visualized upper abdomen is unremark able. There is a small hiatal hernia. There is no evidence for aortic aneurysm or dissection. IMPRESSION: 1. No convincing CT evidence for acute pulmonary embolism. 2. Scattered parenchymal changes in the right upper lobe with associated volume loss, evidence for s ome chronic scarring. 3. A tiny focus of a poorly defined density in the left upper lobe, nonspecific, possibly a small sc ar versus a very tiny patch of pneumonitis. 4. No evidence for other significant acute process. POS: [facility]
[2019-06-02 21:05] LABS: Troponin I Less than 0.010 ng/mL (< 0.028)
== END 2019-06-02 21:33 | disposition home or self-care (01) ==
LOC: ERS 17:39
DX: R07.89 Other chest pain (principal); E03.9 Hypothyroidism, unspecified; R42 Dizziness and giddiness; E11.9 Type 2 diabetes mellitus without complications; K21.9 Gastro-esophageal reflux disease without esophagitis; F32.9 Major depressive disorder, single episode, unspecified; Z79.899 Other long term (current) drug therapy
CPT/HCPCS: 36415; 71045; 71275; 80053; 82550; 84443; 84484; 85025; 85379; 93005; Q9966

== ENCOUNTER 2019-07-28 10:11 | Emergency (ER) | payer OTHER ==
[2019-07-28 10:39] LABS: #Lymphocytes 1.4 thou/uL (1.20-3.40); #Monocytes 0.3 thou/uL (0.11-0.59); #Neutrophils 2.7 thou/uL (1.40-6.50); %Basophils 0.6 % (0.0-1.0); %Lymphocytes 31.7 % (21.0-51.0); %Monocytes 6.8 % (0.0-10.0); Hemoglobin 14.1 g/dL (12.0-16.0); Mean Corpuscular HGB CONC 33.9 g/dL (32.0-36.0); Mean Corpuscular Hemoglobin 29.7 pg (27.0-31.0); Mean Corpuscular Volume 87.6 fL (78.0-98.0); Mean Platelet Volume 7.9 fL (7.4-10.4); Platelet Count 174 thou/uL (130-400); RBC Distribution Width 13.4 % (11.5-14.5); Red Blood Cell (RBC) Count 4.74 mill/uL (4.20-5.40); White Blood Cell (WBC) Count 4.4 thou/uL (4.8-10.8)
[2019-07-28 10:53] LABS: ALT (SGPT) 19 U/L (8-55); AST (SGOT) 23 U/L (5-34); Albumin 4.3 g/dL (3.5-5.0); Alkaline Phosphatase 119 U/L (40-150); Anion Gap 13 mmol/L (10-20); BUN (Urea Nitrogen) 13 mg/dL (9.8-20.1); Bilirubin, Total 0.4 mg/dL (0.2-1.2); Calc. Creatinine Clearance 0 mL/min (70-130); Calcium 9.5 mg/dL (7.8-10.44); Carbon Dioxide 25 mmol/L (22-29); Chloride 107 mmol/L (98-107); Estimated GFR-MDRD 79; Globulin 2.7 g/dL (2.4-3.5); Glucose 102 mg/dL (70-105); Lipase 5 U/L (8-78); Potassium 4.1 mmol/L (3.5-5.1); Sodium 141 mmol/L (136-145)
[2019-07-28 11:28] LABS: Bilirubin Negative (Negative); Blood, Urine Negative (Negative); Clarity Clear (Clear); Glucose, Urine (Dipstick) Normal (Negative); Leukocyte Negative Leu/uL (Negative); Nitrite Negative (Negative); Protein, Urine (Dipstick) Negative (Neg-Trace); Urobilinogen Normal mg/dL (Less than 2)
[2019-07-28] MEDS ORDERED: Fentanyl 100 MCG/2 ML VIAL ONE (11:58)
[2019-07-28] MEDS ORDERED: Ondansetron PF 4 MG/2 ML Vial ONE (11:58)
--- NOTE | 2019-07-28 12:20 | ULT ---
CHRIS ULTRASOUND: Date: 07/28/19 HISTORY: Right upper quadrant pain. FINDINGS: Real-time imaging of the right upper quadrant shows a normal appearing gallbladder. Common duct is 3 mm. Visualized liver parenchyma shows no focal findings. It measures 15.0 cm in length. Technologist describes a negative ultrasound Lui's sign. Pancreas is completely obscured. Right kidney is normal in size and not obstructed. IMPRESSION: No evidence of gallstones. Gallbladder is mildly distended. There is questionable minimal sludge pres ent. POS: [facility]
[2019-07-28] MEDS ORDERED: ISOVUE-370 76%-LOCM 1 ML ONE (13:14)
--- NOTE | 2019-07-28 13:55 | CT ---
CT ABDOMEN AND PELVIS PERFORMED WITH CONTRAST ENHANCEMENT: Date: 07/28/19 HISTORY: Right lower quadrant abdomen pain. FINDINGS: The lung bases are clear of any infiltrative process. This film is obtained in a somewhat angiographic phase. The liver and spleen appear unremarkable. The pancreas shows no mass. The gallbladder is normal in appearance. Right and left adrenal glands, and right and left kidneys are normal in size. No obstruction or mass. There is no significant periaortic or mesenteric adenopathy. Moderate amount of stool throughout the colon. CT of pelvis was performed with contrast enhancement. Fat-containing periumbilical hernia is present. I cannot definitely identify the appendix, but I see no evidence for appendicitis. No free fluid in the pelvis. No adenopathy or mass. Review of osseous structures show no lytic or blastic bony changes. IMPRESSION: 1. Findings that would suggest an element of constipation. 2. Fat-containing periumbilical hernia. POS: [facility]
== END 2019-07-28 14:10 | disposition home or self-care (01) ==
LOC: ERS 10:11
DX: K42.9 Umbilical hernia without obstruction or gangrene (principal); K21.9 Gastro-esophageal reflux disease without esophagitis; E03.9 Hypothyroidism, unspecified; F32.9 Major depressive disorder, single episode, unspecified; Z79.899 Other long term (current) drug therapy
CPT/HCPCS: 36415; 74177; 76705; 80053; 81003; 83690; 85025; 96361; 96374; J2405; J3010; Q9966

== ENCOUNTER 2019-08-07 13:05 | Outpatient (CLI) | payer OTHER ==
--- NOTE | 2019-08-07 16:27 | NM ---
EXAM: NM Hida Scan W Drug PROVIDED CLINICAL HISTORY: Right upper quadrant abdominal pain COMPARISON: None FINDINGS: Sequential anterior imaging of the abdomen is obtained. There is prompt uptake and excretion of radio tracer by the liver. Gallbladder activity is faintly visualized by 15 minutes with increasing activity in the gallbladder imaging up to 60 minutes. Bowel activity is not definitively visualized b y 60 minutes. After 60 minutes of imaging, the patient was administered 8 ounces of ensure by mouth. A gallbladder ejection fraction of 85% was obtained which is within normal limits. A normal ga llbladder ejection fraction is greater than 33%. IMPRESSION: 1. No evidence of a cystic or common duct obstruction. 2. Normal gallbladder ejection fraction.
== END 2019-08-07 13:06 | disposition home or self-care (01) ==
LOC: NM 13:05
PROVIDERS: ATTEND Surgery
DX: R10.11 Right upper quadrant pain (principal)
CPT/HCPCS: 78227; A9537

== ENCOUNTER 2019-08-15 07:21 | Outpatient (CLI) | payer OTHER ==
[2019-08-15 16:25] LABS: #Eosinphils 0.1 thou/uL (0.0-0.7); #Lymphocytes 1.7 thou/uL (1.20-3.40); #Monocytes 0.4 thou/uL (0.11-0.59); #Neutrophils 3.3 thou/uL (1.40-6.50); %Basophils 0.4 % (0.0-1.0); %Eosinophils 1.2 % (0.0-10.0); %Lymphocytes 31.8 % (21.0-51.0); %Monocytes 7.1 % (0.0-10.0); %Neutrophils 59.5 % (42.0-75.0); Hemoglobin 14.1 g/dL (12.0-16.0); Mean Corpuscular Hemoglobin 29.6 pg (27.0-31.0); Mean Corpuscular Volume 89.9 fL (78.0-98.0); Mean Platelet Volume 7.6 fL (7.4-10.4); Platelet Count 212 thou/uL (130-400); Red Blood Cell (RBC) Count 4.77 mill/uL (4.20-5.40); White Blood Cell (WBC) Count 5.5 thou/uL (4.8-10.8)
[2019-08-15 16:45] LABS: ALT (SGPT) 20 U/L (8-55); AST (SGOT) 23 U/L (5-34); Albumin 4.5 g/dL (3.5-5.0); Alkaline Phosphatase 149 U/L (40-110); Anion Gap 13 mmol/L (10-20); BUN (Urea Nitrogen) 13 mg/dL (9.8-20.1); Bilirubin, Total 0.5 mg/dL (0.2-1.2); Calc. Creatinine Clearance 0 mL/min (70-130); Calcium 9.5 mg/dL (7.8-10.44); Carbon Dioxide 27 mmol/L (22-29); Chloride 103 mmol/L (98-107); Estimated GFR-MDRD 82; Globulin 2.8 g/dL (2.4-3.5); Glucose 85 mg/dL (70-105); Potassium 3.9 mmol/L (3.5-5.1); Protein, Total 7.3 g/dL (6.0-8.3); Sodium 139 mmol/L (136-145)
--- NOTE | 2019-08-19 18:26 | EKG ---
Test Reason : Blood Pressure : / mmHG Vent. Rate : 056 BPM Atrial Rate : 056 BPM P-R Int : 156 ms QRS Dur : 112 ms QT Int : 432 ms P-R-T Axes : 025 027 033 degrees QTc Int : 416 ms Sinus bradycardia Incomplete right bundle branch block Nonspecific T wave abnormality Abnormal ECG When compared with ECG of 02-JUN-2019 17:46, No significant change was found Confirmed by MODESTO PACE, SMichael ([id number]) on 08/19/2019 6:25:56 PM Referred By: RAFAT Confirmed By:DR. Nasima SALVADOR MD
== END 2019-08-15 07:22 | disposition home or self-care (01) ==
LOC: LABBT 07:21
PROVIDERS: ATTEND Surgery
DX: Z01.818 Encounter for other preprocedural examination (principal); K42.9 Umbilical hernia without obstruction or gangrene
CPT/HCPCS: 80053; 85025; 93005; 93010

== ENCOUNTER 2019-08-19 12:15 | Day surgery (SDC) | payer OTHER ==
[2019-08-15 16:24] VITALS: BMI 27.4
[~2019-08-19 12:15] MED LIST changes: +Dexamethasone 20 MG/5 ML VIAL ONE; -ISOVUE-370 76%-LOCM 1 ML ONE; +Ketorolac Tromethamine 30 MG/ML VIAL ONE; +Lidocaine 1% PF 5 ML VIAL ONE; +Ondansetron PF 4 MG/2 ML Vial ONE; +PROPOFOL 200 MG/20 ML VIAL ONE; +ePHEDrine 50 MG/ML VIAL ONE
[2019-08-19] MEDS ORDERED: Scopolamine 1.5 mg/72 hour Patch ONE (12:45)
[2019-08-19] MEDS ORDERED: Midazolam HCl 2 mg/2 ml Vial ONE (12:45)
[2019-08-19] MEDS ORDERED: Fentanyl 100 MCG/2 ML VIAL ONE ×3 (12:58→14:46)
[2019-08-19] MEDS ORDERED: Bupivacaine HCl 0.5%/Epinephrine 1:200,000/PF 30 ml Vial ONE (12:59)
[2019-08-19] MEDS ORDERED: HYDROcodone/Acetaminophen 5/325 mg Tablet ONE (15:50)
--- NOTE | 2019-08-20 09:09 | OP ---
DATE OF PROCEDURE: 08/19/2019 PREOPERATIVE DIAGNOSIS: Umbilical hernia. PROCEDURE PERFORMED: Umbilical hernia repair with mesh. INDICATIONS FOR PROCEDURE: A 59-year-old female, who had an enlarging bulge at the umbilicus. FINDINGS: A 2.5 cm defect, 8 cm Proceed mesh used. DESCRIPTION OF PROCEDURE: After informed consent was obtained, the patient was taken to the operating room, given general endotracheal anesthesia, placed in supine position. Abdomen was prepped and draped in usual fashion. A subumbilical incision was performed. Subcu divided sharply. There was a large hernia sac, which was dissected out. The hernia sac contained omentum. The sac was excised. The omentum was reduced. An 8 cm Proceed mesh patch was inserted intra-abdominally. The wings were sutured to the abdominal wall with interrupted 0 Ethibond. Then, 0 Ethibond used to further secure the mesh to the fascial edge. Then, the umbilical skin was sutured to the abdominal wall with interrupted 3-0 Vicryl and then the skin closed with interrupted 4-0 Rapide. Sterile bandage applied. The patient tolerated the procedure well, transferred to Recovery in good condition. Sponge and needle count verified correct x2. Job ID: [id number]
== END 2019-08-19 16:53 | disposition home or self-care (01) ==
LOC: SDC 12:15
PROVIDERS: ATTEND Surgery
PROC: 0WUF0JZ Supplement Abdominal Wall with Synthetic Substitute, Open Approach (ICD-10-PCS; principal; 2019-08-19)
DX: K42.9 Umbilical hernia without obstruction or gangrene (principal); E11.9 Type 2 diabetes mellitus without complications; K21.9 Gastro-esophageal reflux disease without esophagitis; E03.9 Hypothyroidism, unspecified; E66.9 Obesity, unspecified; E55.9 Vitamin D deficiency, unspecified; M19.90 Unspecified osteoarthritis, unspecified site; Z68.27 Body mass index [BMI] 27.0-27.9, adult; Z79.899 Other long term (current) drug therapy
CPT/HCPCS: C1781; J0131; J0670; J0690; J1100; J1885; J2001; J2250; J2405; J2704; J3010; J3490

== ENCOUNTER 2019-08-29 09:49 | Outpatient (CLI) | payer OTHER ==
--- NOTE | 2019-08-29 10:50 | MMO ---
Left Breast MAMMO Unilat Diag DDI LT+MOHAN. CLINICAL HISTORY: Patient is 59 years old and is seen for diagnostic exam. The patient has no family history of breast cancer. The patient has a history of right Ultrasound Guided Core Biopsy in December, and right Mastectomy in 2018 - malignant. VIEWS: The views performed were: left craniocaudal with tomosynthesis; left mediolateral oblique with tomosynthesis; and left mediolateral with tomosynthesis. FILMS COMPARED: The present examination has been compared to a prior imaging study performed at [facility] on 12/24/2017. This study has been interpreted with the assistance of computer-aided detection. MAMMOGRAM FINDINGS: There are scattered fibroglandular densities. There are no suspicious masses, suspicious calcifications, or new areas of architectural distortion. IMPRESSION: THERE IS NO MAMMOGRAPHIC EVIDENCE OF MALIGNANCY. A ROUTINE FOLLOW-UP MAMMOGRAM IN 1 YEAR IS RECOMMENDED. THE RESULTS OF THIS EXAM WERE SENT TO THE PATIENT. ACR BI-RADS Category 1 - Negative MAMMOGRAPHY NOTE: 1. A negative mammogram report should not delay a biopsy if a dominant of clinically suspicious mass is present. 2. Approximately 10% to 15% of breast cancers are not detected by mammography. 3. Adenosis and dense breasts may obscure an underlying neoplasm. Reported by: EDMUND BATES MD Electonically Signed: [id number]
== END 2019-08-29 09:50 | disposition home or self-care (01) ==
LOC: BICMAMMO 09:49
PROVIDERS: ATTEND Internal Medicine Hematology & Oncology
DX: C50.911 Malignant neoplasm of unspecified site of right female breast (principal); Z90.11 Acquired absence of right breast and nipple
CPT/HCPCS: G0279

== ENCOUNTER 2019-10-07 13:09 | Emergency (ER) | payer OTHER ==
[~2019-10-07 13:09] MED LIST changes: -Dexamethasone 20 MG/5 ML VIAL ONE; +Iopamidol 370 76% 100 ML VIAL ONE; -Ketorolac Tromethamine 30 MG/ML VIAL ONE; -Lidocaine 1% PF 5 ML VIAL ONE; -Ondansetron PF 4 MG/2 ML Vial ONE; -PROPOFOL 200 MG/20 ML VIAL ONE; -ePHEDrine 50 MG/ML VIAL ONE
[2019-10-07 13:39] LABS: #Eosinphils 0.1 thou/uL (0.0-0.7); #Lymphocytes 1.2 thou/uL (1.20-3.40); #Monocytes 0.5 thou/uL (0.11-0.59); #Neutrophils 5.2 thou/uL (1.40-6.50); %Basophils 0.3 % (0.0-1.0); %Eosinophils 0.7 % (0.0-10.0); %Lymphocytes 16.7 % (21.0-51.0); %Monocytes 6.7 % (0.0-10.0); %Neutrophils 75.5 % (42.0-75.0); Hemoglobin 13.4 g/dL (12.0-16.0); Mean Corpuscular HGB CONC 32.9 g/dL (32.0-36.0); Mean Corpuscular Hemoglobin 29.5 pg (27.0-31.0); Mean Corpuscular Volume 89.7 fL (78.0-98.0); Mean Platelet Volume 8.1 fL (7.4-10.4); Platelet Count 187 thou/uL (130-400); RBC Distribution Width 12.5 % (11.5-14.5); Red Blood Cell (RBC) Count 4.56 mill/uL (4.20-5.40); White Blood Cell (WBC) Count 6.9 thou/uL (4.8-10.8)
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
--- NOTE | 2019-10-07 13:58 | RAD ---
Exam: Chest one view HISTORY:Trauma Comparison: 06/02/2019 FINDINGS: Lungs: No masses or consolidation. Cardiac silhouette: Normal size Pulmonary vessels: Normal Pleural Spaces: Clear Pneumothorax: None Osseous abnormalities: None of acuity. IMPRESSION: No focal consolidation.
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
[2019-10-07 14:06] LABS: ALT (SGPT) 25 U/L (8-55); AST (SGOT) 42 U/L (5-34); Alkaline Phosphatase 104 U/L (40-110); Anion Gap 13 mmol/L (10-20); BUN (Urea Nitrogen) 16 mg/dL (9.8-20.1); Bilirubin, Total 0.4 mg/dL (0.2-1.2); Calc. Creatinine Clearance 0 mL/min (70-130); Calcium 9.3 mg/dL (7.8-10.44); Carbon Dioxide 26 mmol/L (22-29); Chloride 107 mmol/L (98-107); Estimated GFR-MDRD 82; Globulin 3.2 g/dL (2.4-3.5); Glucose 119 mg/dL (70-105); Potassium 4.1 mmol/L (3.5-5.1); Protein, Total 7.2 g/dL (6.0-8.3); Sodium 142 mmol/L (136-145)
== END 2019-10-07 14:13 | disposition home or self-care (01) ==
LOC: ERS 13:09
DX: S16.1XXA Strain of muscle, fascia and tendon at neck level, initial encounter (principal); S40.012A Contusion of left shoulder, initial encounter; S20.212A Contusion of left front wall of thorax, initial encounter; K21.9 Gastro-esophageal reflux disease without esophagitis; E11.9 Type 2 diabetes mellitus without complications; E03.9 Hypothyroidism, unspecified; F32.9 Major depressive disorder, single episode, unspecified; Z85.3 Personal history of malignant neoplasm of breast; Z79.84 Long term (current) use of oral hypoglycemic drugs; Z79.899 Other long term (current) drug therapy; V49.49XA Driver injured in collision with other motor vehicles in traffic accident, initial encounter
CPT/HCPCS: 70450; 71045; 71260; 72125; 74177; 80053; 85025; G0390; Q9967

== ENCOUNTER 2019-10-16 11:08 | Outpatient (CLI) | payer OTHER ==
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
== END 2019-10-16 11:09 | disposition home or self-care (01) ==
LOC: BICRAD 11:08
PROVIDERS: ATTEND Family Medicine
DX: M25.562 Pain in left knee (principal)

== ENCOUNTER 2020-12-20 09:59 | Outpatient (CLI) | payer OTHER ==
[2020-12-20] MEDS ORDERED: Iopamidol 370 76% 100 ML VIAL ONE (10:14)
--- NOTE | 2020-12-20 12:28 | CT ---
EXAM: CT chest, abdomen, and pelvis with IV contrast: HISTORY: Breast cancer. History of right-sided back and shoulder pain as well as right lower quadrant pain. In jury of right mastectomy. COMPARISON: 10/07/2019 FINDINGS: CT THORAX: Lungs: There is a pleural and parenchymal scarring right upper lobe and right lung apex are again see n. No pulmonary nodule or mass is seen. No consolidation is identified. The large airways are patent. Pleura: No pleural effusion. Lymph nodes: No enlarged lymph nodes are seen by CT size criteria. Mediastinum: Thoracic aorta is normal in caliber. Chest wall: Evidence of right mastectomy. CT ABDOMEN AND PELVIS: Liver: Within normal limits. Gallbladder: Within normal limits. \ Pancreas: Within normal limits. Spleen: Within normal limits. Adrenal glands: Within normal limits. Kidneys: Within normal limits. Urinary Bladder: The urinary bladder is unremarkable. Reproductive organs: Evidence of hysterectomy. Bowel: Small to moderate amount retained fecal material seen throughout the colon. Loops of small bow el are normal in caliber. Adenopathy:No enlarged lymph nodes are seen within the abdomen or pelvis by CT size criteria. Peritoneum: No free fluid or fluid collection is seen. No free intraperitoneal gas is identified. Abdominal wall: No abnormalities seen. Osseous structures: No suspicious lytic or sclerotic osseous lesion. IMPRESSION: 1. No CT findings to suggest metastatic disease. 2. Evidence of right mastectomy. 3. Pleural and parenchymal changes right upper lobe greater anteriorly which may be related to postra diation type changes and scarring. 4. Hysterectomy. 5. Constipation.
--- NOTE | 2020-12-20 14:41 | NM ---
NUCLEAR MEDICINE BONE SCAN WHOLE BODY: (Skeletal scintigraphy) DATE: 12/20/2020 HISTORY: 60-year-old female with malignant neoplasm of overlapping sites of right female breast presents with right-sided back pain and shoulder pain. TECHNIQUE: IV injection of technetium 99m-MDP: 32.0 mCi 3 hour delayed whole body skeletal scintigraphy in anterior and posterior views. FINDINGS: There are no foci of asymmetrically increased uptake that are particularly suspicious for bone metast ases. IMPRESSION: No compelling evidence of skeletal metastasis.
== END 2020-12-20 10:00 | disposition home or self-care (01) ==
LOC: CT 09:59
PROVIDERS: ATTEND Internal Medicine Hematology & Oncology
DX: R10.31 Right lower quadrant pain (principal); M54.6 Pain in thoracic spine; C50.811 Malignant neoplasm of overlapping sites of right female breast; K59.00 Constipation, unspecified; Z90.11 Acquired absence of right breast and nipple; Z90.710 Acquired absence of both cervix and uterus
CPT/HCPCS: 71260; 74177; 78306; 82565; A9503; Q9967

== ENCOUNTER 2021-01-25 09:02 | Outpatient (CLI) | payer OTHER | END 2021-01-25 09:03 | disposition home or self-care (01) | LOC: BICRAD 09:02 | PROVIDERS: ATTEND Family Medicine | DX: M25.511 Pain in right shoulder (principal); M19.011 Primary osteoarthritis, right shoulder ==

== ENCOUNTER 2021-02-23 07:59 | Outpatient (CLI) | payer OTHER | END 2021-02-23 08:00 | disposition home or self-care (01) | LOC: TBSIIMAG 07:59 | PROVIDERS: ATTEND Orthopaedic Surgery | DX: M47.26 Other spondylosis with radiculopathy, lumbar region (principal); M47.27 Other spondylosis with radiculopathy, lumbosacral region | CPT/HCPCS: 72148 ==

== ENCOUNTER 2021-03-22 08:29 | Outpatient (CLI) | payer OTHER | END 2021-03-22 08:30 | disposition home or self-care (01) | LOC: BICMAMMO 08:29 | PROVIDERS: ATTEND Surgery | DX: C50.919 Malignant neoplasm of unspecified site of unspecified female breast (principal) | CPT/HCPCS: G0279 ==

== ENCOUNTER 2021-05-17 10:41 | Observation (INO) | payer OTHER ==
[2021-05-17 11:06] LABS: #Basophils 0.1 thou/uL (0.0-0.2); #Lymphocytes 1.3 thou/uL (1.20-3.40); #Monocytes 0.3 thou/uL (0.11-0.59); #Neutrophils 3.2 thou/uL (1.40-6.50); %Basophils 1.9 % (0.0-1.0); %Eosinophils 0.6 % (0.0-10.0); %Monocytes 6.8 % (0.0-10.0); %Neutrophils 63.7 % (42.0-75.0); Hemoglobin 14.8 g/dL (12.0-16.0); Mean Corpuscular HGB CONC 34.6 g/dL (32.0-36.0); Mean Corpuscular Hemoglobin 31.3 pg (27.0-31.0); Mean Corpuscular Volume 90.5 fL (78.0-98.0); Mean Platelet Volume 7.7 fL (7.4-10.4); Platelet Count 200 thou/uL (130-400); RBC Distribution Width 12.3 % (11.5-14.5); Red Blood Cell (RBC) Count 4.72 mill/uL (4.20-5.40)
[2021-05-17 11:25] LABS: PTT 30.1 sec (22.9-36.1); Prothrombin Time 13.3 sec (12.0-14.7)
[2021-05-17 11:27] LABS: Anion Gap 14 mmol/L (10-20); BUN (Urea Nitrogen) 11 mg/dL (9.8-20.1); Calc. Creatinine Clearance 0 mL/min (70-130); Calcium 9.5 mg/dL (7.8-10.44); Carbon Dioxide 23 mmol/L (22-29); Chloride 107 mmol/L (98-107); Glucose 110 mg/dL (70-105); Potassium 4.2 mmol/L (3.5-5.1); Sodium 140 mmol/L (136-145)
[2021-05-17] MEDS ORDERED: Aspirin 325 MG TAB ONE (12:27)
[2021-05-17] MEDS ORDERED: Guaifenesin DM 100-10/5 ML UDCUP PO PRN (13:04)
[2021-05-17] MEDS ORDERED: Cepastat Lozenges 1 LOZ PO PRN (13:04)
[2021-05-17] MEDS ORDERED: Calcium Carbonate 500 MG ChewTAB PO PRN (13:04)
[2021-05-17] MEDS ORDERED: Sodium Chloride 0.65% Nasal 44 ML BOT EA NARE PRN (13:04)
[2021-05-17] MEDS ORDERED: Loperamide HCl 2 MG CAP PO PRN (13:04)
[2021-05-17] MEDS ORDERED: hydrALAZINE 20 MG/ML VIAL SLOW IVP PRN (13:04)
[2021-05-17] MEDS ORDERED: Zolpidem Tartrate 5 MG TAB PO PRN (13:04)
[2021-05-17] MEDS ORDERED: Senokot S 8.6-50 MG TAB PO PRN (13:04)
[2021-05-17] MEDS ORDERED: Acetaminophen 325 MG TAB PO PRN (13:04)
[2021-05-17] MEDS ORDERED: Ondansetron PF 4 MG/2 ML Vial IVP PRN (13:04)
[2021-05-17] MEDS ORDERED: Ondansetron ODT 4 MG TAB PO PRN (13:04)
[2021-05-17] MEDS ORDERED: HYDROcodone/Acetaminophen 5/325 mg Tablet PO PRN (13:04)
[2021-05-17] MEDS ORDERED: Bisacodyl 10 MG SUPP PR PRN (13:04)
[2021-05-17] MEDS ORDERED: Loratadine 10 MG TAB PO PRN (13:04)
[2021-05-17] MEDS ORDERED: HumaLOG 300 UNITS/3 ML VIAL SC PRN ×2 (13:07)
[2021-05-17] MEDS ORDERED: Dextrose 5% in Water 1,000 ML IV PRN (13:07)
[2021-05-17] MEDS ORDERED: Dextrose 50% Abboject 50 ML SYRINGE SLOW IVP PRN (13:07)
[2021-05-17 16:07] VITALS: BMI 31.7
[2021-05-17] MEDS: Famotidine 20 MG TAB PO SCH (20:27)
[2021-05-17] MEDS ORDERED: Atorvastatin Calcium 40 MG TAB PO SCH (21:00)
[2021-05-18 05:06] LABS: Hemoglobin A1c 5.4 % (4.0-6.0)
[2021-05-18 05:31] LABS: Anion Gap 14 mmol/L (10-20); BUN (Urea Nitrogen) 11 mg/dL (9.8-20.1); Calc. Creatinine Clearance 108 mL/min (70-130); Carbon Dioxide 22 mmol/L (22-29); Chloride 108 mmol/L (98-107); Potassium 3.9 mmol/L (3.5-5.1); Sodium 140 mmol/L (136-145)
[2021-05-18 05:32] LABS: ALT (SGPT) 17 U/L (8-55); AST (SGOT) 20 U/L (5-34); Albumin 3.8 g/dL (3.5-5.0); Alkaline Phosphatase 87 U/L (40-110); Bilirubin, Total 0.5 mg/dL (0.2-1.2); Calcium 8.8 mg/dL (7.8-10.44); Cardiac Risk 2.9 (Less than 4.5); Cholesterol 162 mg/dl (< 200 Desired); Globulin 2.6 g/dL (2.4-3.5); Glucose 106 mg/dL (70-105); HDL Cholesterol 56 mg/dL (>60 Neg Risk); LDL Cholesterol, Calculated 88 mg/dL; Protein, Total 6.4 g/dL (6.0-8.3); Triglycerides 88 mg/dL (Less than 150)
[2021-05-18] MEDS ORDERED: Aspirin 81 mg Enteric Coated Tablet PO SCH (09:00)
[2021-05-18] MEDS ORDERED: Enoxaparin Sodium 40 MG/0.4 ML SYRINGE SC SCH (09:00)
[2021-05-18] MEDS: Famotidine 20 MG TAB PO SCH (10:06)
[2021-05-18 15:45] VITALS: BP 134/88; TEMP 97.6
== END 2021-05-18 17:05 | disposition home or self-care (01) ==
LOC: ERS 10:41 → 2SE 13:10
PROVIDERS: ADMIT Internal Medicine; ATTEND Internal Medicine
DX: R20.0 Anesthesia of skin (principal); R20.2 Paresthesia of skin; C50.911 Malignant neoplasm of unspecified site of right female breast; E11.9 Type 2 diabetes mellitus without complications; E78.5 Hyperlipidemia, unspecified; I10 Essential (primary) hypertension; E03.9 Hypothyroidism, unspecified; I45.10 Unspecified right bundle-branch block; K21.9 Gastro-esophageal reflux disease without esophagitis; Z79.899 Other long term (current) drug therapy; Z85.3 Personal history of malignant neoplasm of breast
CPT/HCPCS: 36415; 36416; 70450; 70551; 80048; 80053; 80061; 83036; 84484; 85025; 85610; 85730; 93005; 93306; 93880; 95712; 95819; 95957; 96372; G0378; J1650

== ENCOUNTER 2022-04-03 11:31 | Emergency (ER) | payer OTHER ==
[2022-04-03 12:12] LABS: #Eosinphils 0.1 thou/uL (0.0-0.7); #Lymphocytes 1.3 thou/uL (1.20-3.40); #Monocytes 0.3 thou/uL (0.11-0.59); #Neutrophils 2.8 thou/uL (1.40-6.50); %Basophils 0.6 % (0.0-1.0); %Eosinophils 1.1 % (0.0-10.0); %Lymphocytes 29.2 % (21.0-51.0); %Monocytes 7.2 % (0.0-10.0); %Neutrophils 61.9 % (42.0-75.0); Hemoglobin 14.1 g/dL (12.0-16.0); Mean Corpuscular Hemoglobin 29.7 pg (27.0-31.0); Mean Corpuscular Volume 92.9 fL (78.0-98.0); Mean Platelet Volume 7.2 fL (7.4-10.4); Platelet Count 197 thou/uL (130-400); RBC Distribution Width 12.4 % (11.5-14.5); Red Blood Cell (RBC) Count 4.74 mill/uL (4.20-5.40); White Blood Cell (WBC) Count 4.4 thou/uL (4.8-10.8)
[2022-04-03 12:34] LABS: ALT (SGPT) 27 U/L (8-55); AST (SGOT) 33 U/L (5-34); Albumin 4.1 g/dL (3.5-5.0); Alkaline Phosphatase 104 U/L (40-110); Anion Gap 12 mmol/L (10-20); BUN (Urea Nitrogen) 17 mg/dL (9.8-20.1); Bilirubin, Total 0.3 mg/dL (0.2-1.2); Calc. Creatinine Clearance 0 mL/min (70-130); Calcium 9.4 mg/dL (7.8-10.44); Carbon Dioxide 28 mmol/L (22-29); Chloride 105 mmol/L (98-107); Globulin 3.1 g/dL (2.4-3.5); Glucose 98 mg/dL (70-105); Lipase 12 U/L (8-78); Protein, Total 7.2 g/dL (6.0-8.3); Sodium 141 mmol/L (136-145)
== END 2022-04-03 14:32 | disposition home or self-care (01) ==
LOC: ERS 11:31
DX: R42 Dizziness and giddiness (principal); R55 Syncope and collapse; E11.9 Type 2 diabetes mellitus without complications; K21.9 Gastro-esophageal reflux disease without esophagitis; E03.9 Hypothyroidism, unspecified; Z79.890 Hormone replacement therapy; Z79.899 Other long term (current) drug therapy
CPT/HCPCS: 36415; 70450; 71045; 80053; 83690; 84484; 85025; 93005; 94760; 96360

== ENCOUNTER 2022-08-11 10:58 | Emergency (ER) | payer OTHER ==
[2022-08-11 12:02] LABS: Bacteria/HPF None Seen HPF (None Seen); Bilirubin Negative (Negative); Blood, Urine Negative (Negative); Clarity Clear (Clear); Glucose, Urine (Dipstick) Normal (Negative); Ketone, Urine Negative (Negative); Leukocyte 75 Leu/uL (Negative); Nitrite Negative (Negative); Protein, Urine (Dipstick) Negative (Neg-Trace); RBC/HPF None Seen HPF (0-3); Specific Gravity, Urine 1.005 (1.002-1.036); Squamous Epithelial None Seen HPF (0-3); Urobilinogen Normal mg/dL (Less than 2)
[2022-08-11] MEDS ORDERED: Ibuprofen 200 MG TAB ONE (12:32)
== END 2022-08-11 15:25 | disposition home or self-care (01) ==
LOC: ERS 10:58
DX: S00.81XA Abrasion of other part of head, initial encounter (principal); M25.562 Pain in left knee; M25.571 Pain in right ankle and joints of right foot; R10.9 Unspecified abdominal pain; E11.9 Type 2 diabetes mellitus without complications; K21.9 Gastro-esophageal reflux disease without esophagitis; E03.9 Hypothyroidism, unspecified; Z79.899 Other long term (current) drug therapy; W18.30XA Fall on same level, unspecified, initial encounter; Y92.481 Parking lot as the place of occurrence of the external cause
CPT/HCPCS: 70450; 70486; 71046; 72125; 81003; 81015; 87480; 87510; 87660

== ENCOUNTER 2023-01-08 08:36 | Outpatient (CLI) | payer OTHER | END 2023-01-08 08:37 | disposition home or self-care (01) | LOC: BICMAMMO 08:36 | PROVIDERS: ATTEND Internal Medicine Hematology & Oncology | DX: C50.811 Malignant neoplasm of overlapping sites of right female breast (principal); Z90.11 Acquired absence of right breast and nipple | CPT/HCPCS: G0279 ==

== ENCOUNTER 2023-02-09 11:32 | Outpatient (CLI) | payer OTHER | END 2023-02-09 11:33 | disposition home or self-care (01) | LOC: CT 11:32 | PROVIDERS: ATTEND Family Medicine | DX: R10.9 Unspecified abdominal pain (principal) | CPT/HCPCS: 74176; 81001 ==

== ENCOUNTER 2023-05-21 07:30 | Outpatient (CLI) | payer OTHER ==
[2023-05-21] MEDS ORDERED: Iopamidol 370 76% 100 ML VIAL ONE (10:18)
== END 2023-05-21 07:31 | disposition home or self-care (01) ==
LOC: BICCT 07:30
PROVIDERS: ATTEND Family Medicine
DX: R10.11 Right upper quadrant pain (principal); R10.31 Right lower quadrant pain; K59.00 Constipation, unspecified
CPT/HCPCS: 74177; 82565

== ENCOUNTER 2023-05-25 13:41 | Outpatient (CLI) | payer OTHER | END 2023-05-25 13:42 | disposition home or self-care (01) | LOC: ULT 13:41 | PROVIDERS: ATTEND Internal Medicine Gastroenterology | DX: R10.11 Right upper quadrant pain (principal); K59.00 Constipation, unspecified | CPT/HCPCS: 76705 ==

== ENCOUNTER 2024-08-04 07:55 | Outpatient (CLI) | payer OTHER ==
[2024-08-04] MEDS ORDERED: Iopamidol 370 76% 100 ML VIAL ONE (10:50)
== END 2024-08-04 07:56 | disposition home or self-care (01) ==
LOC: BICCT 07:55
PROVIDERS: ATTEND Internal Medicine Gastroenterology
DX: R10.9 Unspecified abdominal pain (principal); K42.9 Umbilical hernia without obstruction or gangrene
CPT/HCPCS: 74177; 82565; Q9967

== ENCOUNTER 2024-08-11 08:49 | Outpatient (CLI) | payer OTHER | END 2024-08-11 08:50 | disposition home or self-care (01) | LOC: BICMAMMO 08:49 | PROVIDERS: ATTEND Internal Medicine Hematology & Oncology | DX: Z08 Encounter for follow-up examination after completed treatment for malignant neoplasm (principal); Z85.3 Personal history of malignant neoplasm of breast | CPT/HCPCS: G0279 ==